=== PATIENT | male | born 1955 | race Caucasian/White ===

== ENCOUNTER 2016-08-26 09:25 | Emergency (ER) | payer BC, OTHER ==
[~2016-08-26] VITALS: Ht 182.9 cm; Wt 90.6 kg
[~2016-08-26 09:25] MED LIST: DICL50TA3 PO
[2016-08-26 09:30] VITALS: PULSE 75; RESP 16; TEMP 98; O2SAT 99
[2016-08-26 09:37] VITALS: BP 184/102
[2016-08-26 09:48] VITALS: BP 174/86
[2016-08-26] MEDS ORDERED: NAPR500 PO (09:53)
[2016-08-26] MEDS ORDERED: HYDR-3533 PO (09:53)
--- NOTE | 2016-08-26 09:54 | PD ---
HPI Chief Complaint: Pain: Acute or Chronic Time Seen by Provider: 09:35 Travel History International Travel<30 days: No Contact w/Intl Traveler<30days: No Traveled to known affect area: No History of Present Illness HPI This is a 61-year-old man who presents emergency department complaining of left toe pain. It started a couple days ago. It's been red and inflamed. It's worse when he gets up and walks on it, improve when he puts it up. He believes his had gout in the past. 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 He is worried about flying status post a fly out tonight. He otherwise has been feeling generally well and healthy. History Past Medical History Medical History: Denies Significant Hx Social History Alcohol Use: Yes (SOCIAL) Tobacco Use: No Allergies-Medications (Allergen,Severity, Reaction): Coded Allergies: Wasp (Verified Allergy, Severe, SWELLING AT SITE, 08/26/16) Reported Meds & Prescriptions Reported Meds & Active Scripts Active Diclofenac Sodium 50 Mg Tab 50 Mg PO BID Review of Systems Except as stated in HPI: all other systems reviewed are Neg Physical Exam Narrative GENERAL: Well-appearing 61-year-old man, no acute distress. SKIN: Warm and dry. CARDIOVASCULAR: Warm and well perfused. RESPIRATORY: Normal rate and effort. MUSCULOSKELETAL: Focused examination of the left foot reveals focal inflammation redness and irritation in the IP joint of the left great toe. There is some warmth there. He has preserved range of motion. He has tenderness of palpation. There is no spreading erythema redness or other. NEUROLOGICAL: Awake and alert. No gross deficits. Data Data Last Documented VS Vital Signs Date Time Temp Pulse Resp B/P Pulse Ox O2 Delivery O2 Flow Rate FiO2 08/26/16 09:37 184/102 08/26/16 09:30 98.0 75 16 99 MDM Medical Decision Making Medical Screen Exam Complete: Yes Emergency Medical Condition: Yes Differential Diagnosis Gout, septic arthritis, cellulitis, other Narrative Course Medical decision making This 61-year-old male presents to the emergency department with focal inflammation of the left great toe IP joint. This is suspicious for gout. I don't see any no risk factors for septic arthritis other than he may have had gout before. No fevers or chills. Superficial skin infection also seems most likely. Patient looks well. Recommend empiric treatment for gout. Diagnosis Primary Impression: Inflammatory arthritis Additional Impression: Gout of big toe Patient Instructions: General Instructions Departure Forms: Tests/Procedures, Work Release Enter return to work date: August 30, 2016 Additional Instructions: Take Naprosyn as prescribed. Use Lortab if needed for severe pain. Do not take this medication and drive, or fly. Use caution as this medication can cause drowsiness and constipation. Return to the emergency department for any worsening pain, redness, swelling, fevers, or any other new or worsening symptoms. Follow-up with her primary doctor for not feeling completely well in 7-10 days. Med/Other Pt SpecificInfo: Prescription(s) given Scripts Hydrocodone-Acetaminophen (Lortab)5-325 Mg Tab1-2 Tab PO Q6H PRN (PAIN) #12 TAB Prov:Jaime Rebolledo MD 08/26/16 Naproxen (Naprosyn)500 Mg [id number] Mg PO BID PRN (PAIN SCALE 1 TO 10) #20 TAB Prov:Jaime Rebolledo MD 08/26/16 Disposition: 01 DISCHARGE HOME Condition: Stable Jaime Rebolledo MD August 26, 2016 09:54
== END 2016-08-26 09:59 | disposition home or self-care (01) ==
LOC: PHED 09:25
DX: M06.4 Inflammatory polyarthropathy (principal); M10.9 Gout, unspecified
CPT/HCPCS: 99283